=== PATIENT | female | born 1990 | race Two or more races ===

== ENCOUNTER 2017-12-31 00:17 | Emergency (ER) | payer SELFPAY ==
[~2017-12-31] VITALS: Ht 160 cm; Wt 63.5 kg
[2017-12-31 00:38] VITALS: BP 124/64
[2017-12-31] MEDS ORDERED: LIDOCAINE 1% PF 2 ML VIAL. INJ ONE (01:00)
--- NOTE | 2017-12-31 01:39 | PHYS DOC ---
Past Medical History Past Medical History: No Pertinent History Additional Past Surgical Histo: FOOT SX Alcohol Use: Heavy Drug Use: Marijuana Adult General Chief Complaint Chief Complaint: LACERATION/AVULSION HPI HPI Patient is a 27 year old female who presents with left hand laceration. Patient was using a steak knife to open some sort of plastic cup. She actually cut herself on the left hand. She presents to the emergency department complaining of a laceration between the thumb and index finger. Her last tetanus shot was last year. She denies any additional complaints. No numbness or tingling in those extremities. Review of Systems Review of Systems Constitutional: Denies fever or chills Respiratory: Denies cough Cardiovascular: No additional information Musculoskeletal: hand injury Integument: Denies rash or skin lesions All other systems were reviewed and found to be within normal limits, except as documented in this note. Current Medications Current Medications Current Medications Medications (Trade) Dose Ordered Sig/Sara Start Time Stop Time Status Last Admin Dose Admin Lidocaine HCl (Xylocaine-Mpf 1% 2ml Vial) 2 ml 1X ONCE 12/31/17 01:00 12/31/17 01:01 DC 12/31/17 00:52 2 ML Allergies Allergies Allergies Coded Allergies Type Severity Reaction Last Updated Verified Penicillins Allergy Intermediate 12/31/17 Yes Physical Exam Physical Exam Constitutional: Well developed, well nourished, no acute distress HENT: Normocephalic, atraumatic, bilateral external ears normal, oropharynx moist Neck: Normal range of motion Cardiovascular:Heart rate regular rhythm, no murmur Skin: Warm, dry Extremities: 2.5 - 3 cm laceration in the web space b/w left thumb and index finger. slow ooze of red blood. ABduction, adduction, flexion, extension of the thumb are all intact. Cap refill < 2 seconds. Sensation to light touch intact. Flexion/extension of the index finger intact. Neurologic: Alert and oriented X 3 Psychologic: Affect normal Current Patient Data Vital Signs Vital Signs Date Time Temp Pulse Resp B/P (MAP) Pulse Ox O2 Delivery O2 Flow Rate FiO2 12/31/17 00:38 97.5 96 18 124/64 (84) 97 Room Air 97.5 EKG EKG [] Radiology/Procedures Radiology/Procedures [] Course & Med Decision Making Course & Med Decision Making Pertinent Labs and Imaging studies reviewed. (See chart for details) Patient was evaluated in the emergency department for a laceration of the left hand. See the procedure note below. Discharged to home. Wound care was discussed. No tetanus was indicated today. All of her questions were answered prior to discharge home. Procedure note: Laceration left hand. Wound and area were cleansed with saline. Local anesthesia provided with 4 mls total 1% lidocaine. 7 simple, interrupted sutures placed with 4-0 prolene. Patient tolerated well. Wound dressed with gauze/LUCERO bandage. Dragon Disclaimer Dragon Disclaimer This electronic medical record was generated, in whole or in part, using a voice recognition dictation system. Departure Departure Impression: Primary Impression: Laceration of left hand Disposition: 01 HOME, SELF-CARE Condition: GOOD Patient Instructions: Laceration Care, Adult, [id number], Sutured Wound Care , [id number] VANESSA ABURTO DO Dec 31, 2017 01:39
== END 2017-12-31 01:20 | disposition home or self-care (01) ==
LOC: ER 00:17
DX: S61.012A Laceration without foreign body of left thumb without damage to nail, initial encounter (principal); F10.20 Alcohol dependence, uncomplicated; Y90.9 Presence of alcohol in blood, level not specified; Z88.0 Allergy status to penicillin; W26.0XXA Contact with knife, initial encounter; Y93.89 Activity, other specified; Y92.89 Other specified places as the place of occurrence of the external cause; Y99.8 Other external cause status
CPT/HCPCS: 12002; 99283